=== PATIENT | female | born 1985 ===

== ENCOUNTER 2021-07-02 01:32 | Emergency (ER) | payer BC ==
[2021-07-02] MEDS ORDERED: Levofloxacin 750 MG Tab PO STA (02:39)
== END 2021-07-02 03:35 | disposition home or self-care (01) ==
LOC: JD.ED 01:32
DX: N12 Tubulo-interstitial nephritis, not specified as acute or chronic (principal)
CPT/HCPCS: 81001; 81025; 87086; 87088; 87186; 99283; 99284